=== PATIENT | male | born 1960 | race Caucasian/White ===

== ENCOUNTER 2016-12-16 20:43 | Observation (INO) | payer BC ==
[~2016-12-16] VITALS: Ht 182.9 cm; Wt 99.9 kg
[2016-12-16] MEDS ORDERED: MORPHINE SULFATE 2 MG/ML DISP.SYRIN. IV PRN ×2 (21:00→22:00)
[2016-12-16] MEDS ORDERED: NITROGLYCERIN SUBLINGUAL 0.4 MG BOTTLE OF 25. SL PRN (21:00)
[2016-12-16] MEDS ORDERED: ASPIRIN 81 MG TAB.CHEW PO ONE (21:30)
[2016-12-16 21:35] LABS: BASO # 0.1 x10^3/uL (0.0-0.2); BASO % 2 % (0-3); EOS % 2 % (0-3); HEMATOCRIT 39.2 % (39.0-53.0); HEMOGLOBIN 13.6 g/dL (13.0-17.5); LYMPH # 2.4 x10^3/uL (1.0-4.8); LYMPH % 39 % (24-48); MEAN CORPUSCULAR HEMOGLOBIN 31 pg (25-35); MEAN CORPUSCULAR HGB CONC 35 g/dL (31-37); MEAN CORPUSCULAR VOLUME 89 fL (79-100); MONO % 8 % (0-9); NEUT % 50 % (31-73); PLATELET COUNT 217 x10^3/uL (140-400); RED BLOOD COUNT 4.41 x10^6/uL (4.30-5.70); WHITE BLOOD COUNT 6.1 x10^3/uL (4.0-11.0)
[2016-12-16 21:50] LABS: CALCIUM 9.5 mg/dL (8.5-10.1); CREATININE 1.1 mg/dL (0.7-1.3); GFR 69.8; POTASSIUM 4.1 mmol/L (3.5-5.1)
[2016-12-16 21:55] LABS: ALBUMIN 3.9 g/dL (3.4-5.0); DIRECT BILIRUBIN 0.1 mg/dL (0.0-0.2); TOTAL BILIRUBIN 0.4 mg/dL (0.2-1.0); TOTAL PROTEIN 6.8 g/dL (6.4-8.2)
[2016-12-16] MEDS ORDERED: ONDANSETRON PF 4 MG/2 ML VIAL. IV PRN (22:00)
--- NOTE | 2016-12-16 23:37 | PHYS DOC ---
Past Medical History Past Medical History: No Pertinent History Past Surgical History: Other Additional Past Surgical Histo: BILATERAL KNEE Alcohol Use: Rarely Drug Use: None Adult General Chief Complaint Chief Complaint: CHEST PAIN-CARDIAC NATURE HPI HPI 56-year-old gentleman presenting to the emergency department today with right- sided chest pressure that radiates to his right neck and jaw and his right scapula. Currently he says that the pain is resolved. He describes it as moderate in intensity and is not associated with nausea vomiting or diaphoresis. He took 2 attempts prior to arrival without relief. He denies personal history of blood clotting disorders hemoptysis unilateral leg swelling or family history of blood clotting disorders. He denies recent orthopedic injury or immobilization or plane ride. He has a strong family history of heart disease and has a history of smoking. Review of systems is negative for abdominal pain nausea vomiting diaphoresis. He denies shortness of breath. All other review of systems is negative unless otherwise noted in history of present illness. Review of Systems Review of Systems SEE ABOVE. Current Medications Current Medications Current Medications Medications (Trade) Dose Ordered Sig/Steve Start Time Stop Time Status Last Admin Dose Admin Aspirin (Children'S Aspirin) 324 mg 1X ONCE 12/16/16 21:30 12/16/16 21:31 DC 12/16/16 21:32 324 MG Morphine Sulfate 2 mg PRN Q2HR PRN 12/16/16 22:00 12/17/16 21:59 Nitroglycerin (Nitrostat) 0.4 mg PRN Q5MIN PRN 12/16/16 21:00 12/16/16 21:35 0.4 MG Ondansetron HCl (Zofran) 4 mg PRN Q8HRS PRN 12/16/16 22:00 12/17/16 21:59 Allergies Allergies Allergies Coded Allergies Type Severity Reaction Last Updated Verified No Known Drug Allergies 12/16/16 No Physical Exam Physical Exam Constitutional: Well developed, well nourished, no acute distress, non-toxic appearance. HENT: Normocephalic, atraumatic, bilateral external ears normal, oropharynx moist, no oral exudates, nose normal. [] Eyes: PERRLA, EOMI, conjunctiva normal, no discharge. [] Neck: Normal range of motion, no tenderness, supple, no stridor. Cardiovascular:Heart rate regular rhythm, no murmur Lungs & Thorax: Bilateral breath sounds clear to auscultation Abdomen: Bowel sounds normal, soft, no tenderness, no masses, no pulsatile masses. [] Skin: Warm, dry, no erythema, no rash. [] Back: No tenderness, no CVA tenderness. Extremities: No tenderness, no cyanosis, no clubbing, ROM intact, no edema. [] Neurologic: Alert and oriented X 3, normal motor function, normal sensory function, no focal deficits noted. [] Psychologic: Affect normal, judgement normal, mood normal. [] Current Patient Data Vital Signs Vital Signs Date Time Temp Pulse Resp B/P Pulse Ox O2 Delivery O2 Flow Rate FiO2 12/16/16 21:57 56 17 96/63 95 Room Air 12/16/16 21:09 98.1 98.1 Lab Values Laboratory Tests Test 12/16/16 21:28 White Blood Count 6.1x10^3/uL (4.0-11.0) Red Blood Count 4.41x10^6/uL (4.30-5.70) Hemoglobin 13.6g/dL (13.0-17.5) Hematocrit 39.2% (39.0-53.0) Mean Corpuscular Volume 89fL (79-100) Mean Corpuscular Hemoglobin 31pg (25-35) Mean Corpuscular Hemoglobin Concent 35g/dL (31-37) Red Cell Distribution Width 13.0% (11.5-14.5) Platelet Count 217x10^3/uL (140-400) Neutrophils (%) (Auto) 50% (31-73) Lymphocytes (%) (Auto) 39% (24-48) Monocytes (%) (Auto) 8% (0-9) Eosinophils (%) (Auto) 2% (0-3) Basophils (%) (Auto) 2% (0-3) Neutrophils # (Auto) 3.0x10^3uL (1.8-7.7) Lymphocytes # (Auto) 2.4x10^3/uL (1.0-4.8) Monocytes # (Auto) 0.5x10^3/uL (0.0-1.1) Eosinophils # (Auto) 0.1x10^3/uL (0.0-0.7) Basophils # (Auto) 0.1x10^3/uL (0.0-0.2) Sodium Level 142mmol/L (136-145) Potassium Level 4.1mmol/L (3.5-5.1) Chloride Level 105mmol/L (98-107) Carbon Dioxide Level 28mmol/L (21-32) Anion Gap 9 (6-14) Blood Urea Nitrogen 30mg/dL (8-26) H Creatinine 1.1mg/dL (0.7-1.3) Estimated GFR (Cockcroft-Gault) 69.8 Glucose Level 93mg/dL (70-99) Calcium Level 9.5mg/dL (8.5-10.1) Total Bilirubin 0.4mg/dL (0.2-1.0) Direct Bilirubin 0.1mg/dL (0.0-0.2) Aspartate Amino Transferase (AST) 18U/L (15-37) Alanine Aminotransferase (ALT) 29U/L (16-63) Alkaline Phosphatase 60U/L (46-116) Troponin I Quantitative < 0.017ng/mL (0.000-0.055) RW-Trr-I-Type Natriuretic Peptide 22pg/mL (0-124) Total Protein 6.8g/dL (6.4-8.2) Albumin 3.9g/dL (3.4-5.0) Lipase 128U/L (73-393) Laboratory Tests 12/16/16 21:28 Laboratory Tests 12/16/16 21:28 EKG EKG [] Sinus rhythm with a regular rate. ST segments congruent. Intervals and axis are within normal limits. Radiology/Procedures Radiology/Procedures Chest x-ray reviewed by myself shows no obvious infiltrate or pneumothorax present. No obvious acute cardiopulmonary process present. Course & Med Decision Making Course & Med Decision Making Pertinent Labs and Imaging studies reviewed. (See chart for details) [] 56-year-old male presenting the emergency department with chest pain. On examination the patient's vital signs afebrile with a normal heart rate. Mild hypertension. Physical exam unremarkable. Aspirin ordered along with nitroglycerin as needed for pain. EKG unremarkable. Chest x-ray unremarkable. Blood work obtained showed a negative troponin. CBC and chemistry panel unremarkable. Given the patient's age strong family history and present illness the patient was admitted for serial blood testing further evaluation workup and care including cardiology consultation. Dragon Disclaimer Dragon Disclaimer This electronic medical record was generated, in whole or in part, using a voice recognition dictation system. Departure Departure Impression: Primary Impression: Chest pain Disposition: ADMITTED INPATIENT Admitting Physician: Babs Estrada Condition: STABLE Referrals: MARTY MURRELL DDS (PCP) JESUS HOFFMAN MD Dec 16, 2016 23:37
[2016-12-17 00:44] VITALS: BP 115/68
--- NOTE | 2016-12-17 02:20 | ACF ---
Admission Forms Criteria CARDIOLOGY GRG Clinical Indications for Admission to Inpatient Care ( Place 'X' for any and all applicable criteria): Hospital admission is needed for appropriate care of the patient because of ANY ONE of the following (1): [ ] I. Hemodynamic instability as indicated by ALL of the following (1)(2)(3) (4)(5) [ ]a) Vital signs or other findings not as expected for chronic patient condition or baseline [ ]b) Instability indicated by ANY ONE of the following: [ ]i) Hypotension [ ]ii) Symptomatic Tachycardia unresponsive to treatment ( e.g., analgesia, fluids, sedation as indicated) [ ]iii) Inadequate perfusion indicated by ANY ONE of the following: [ ] 1) Lactic acidosis (> 2 mmol/L) [ ] 2) New abnormal capillary refill (> 3 seconds) [ ] 3) Reduced urine output [ ] 4) New altered mental status [ ]iv) Orthostatic vital sign changes unresponsive to treatment (e.g., fluids) [ ]v) IV inotropic or vasopressor medication required to maintain adequate blood pressure or perfusion [ ] II. Severe heart failure as indicated by ANY ONE of the following(17)(18) [ ]a) Respiratory distress [ ]b) Hypotension [ ]c) Anasarca (refractory to outpatient therapy) [ ]d) Cardiac arrhythmias of immediate concern [ ]e) Myocardial ischemia [ ] III. Cardiac arrhythmias or findings of immediate concern indicated by ANY ONE of the following (19)(20): [ ] a) Heart rhythms that are inherently dangerous or unstable indicated by ANY ONE of the following (21)(22)(23): [ ] i) Resuscitated ventricular fibrillation or cardiac arrest [ ] ii) Ventricular escape rhythm [ ] iii) Sustained ventricular tachycardia (30 seconds or more of ventricular rhythm at greater than 100 beats per minute) [ ] iv) Nonsustained ventricular tachycardia and ANY ONE of the following: [ ] 1) Suspected cardiac ischemia as cause or consequence of ventricular tachycardia [ ] 2) In setting of acute myocarditis [ ] b) Unstable cardiac conduction defects indicated by ANY ONE of the following(23)(24)(25) [ ] i) Type II second-degree atrioventricular block [ ]ii) Third-degree atrioventricular block [ ]iii) New-onset left bundle branch block with suspected myocardial ischemia [ ]c) Any heart rhythm and ANY ONE of the following (21)(22)(26)(27) (28) [ ] i) Continuous long-term ECG monitoring needed (e.g., initiation of drug requiring monitoring for more than 24 hours) [ ] ii) Patient has automatic implanted cardioverter defibrillator that is repeatedly firing, malfunctioning, or in need of immediate adjustment of settings beyond the scope of ambulatory or observation care [ ]d) Heart rhythms of concern due to ANY ONE of the following: [ ] i) Hypotension [ ] ii) Respiratory distress [ ] iii) Association with other significant symptoms (e.g., bradycardia with syncope or ongoing dizziness, supraventricular tachycardia with chest pain (14)(15)(17) [ ] IV. Monitoring for cardiac contusion beyond the scope of observation care needed [A](30)(31)(32) [ ] V. Surgical or device complication (e.g., valve replacement complication , pacemaker dysfunction) (35)(41)(44)(45)(46) [ ] . Inpatient palliative care needed. [B](49) Also use Inpatient Palliative Care Criteria [ ] VII. Nonbacterial thrombotic (marantic) endocarditis (36)(43)(47)(48) [X] VIII. Cardiology condition, symptom, or finding for which emergency and observation care has failed or are not considered appropriate. [ ] IX. Acute valvular disease requiring inpatient as indicated by ANY ONE of the following (41) [ ]a) Acute valvular regurgitation (42) [ ]b) Noninfectious valvulitis (43) [ ]c) Obstructive valve thrombosis [ ]d) Paravalvular leak [ ]e) Other significant valvular disorder remaining after emergency or observation level of care (as appropriate) [ ]X. Pericardial disease requiring inpatient treatment as indicated by ANY ONE of the following (33)(34)(35)(36)(37) [ ]a) Suspected tamponade (38)(39)(40) [ ]b) Hemopericardium [ ]c) Other significant pericardial disorder remaining after emergency or observation level of care (as appropriate) [ ] XI. Cardiac ischemia beyond scope of emergency and observation care. [ ] XII. Hypertension requiring inpatient treatment as indicated by ANY ONE of the following (6)(7)(8) [ ]a) SBP greater than 220 mm Hg or DBP greater than 120 mmHg despite treatment [ ]b) SBP greater than 140 mm Hg or DBP greater than 100 mm Hg with evidence of acute end organ damage as indicated by ANY ONE of the following [ ] i) Encephalopathy [ ] ii) Acute renal failure as indicated by new onset of ANY ONE of the following (9)(10)(11)(12)(13) [ ]1) 3-fold rise in serum creatinine from baseline [ ]2) Serum creatinine greater than 4 mg/dL ( 354 micromoles/L) with acute rise greater than 0.5 mg/dL (44.2 micromoles/L) [ ]3) Reduction of more than 75% in estimated glomerular filtration rate from baseline [ ]4) Estimated glomerular filtration rate less than 35 mL/min/1.73m2 (0.59 mL/sec/1.73m2) in child up to 18 years of age [ ]5) Cessation of urine output indicated by ALL of the following [ ]A. Adequate volume status [ ]B. Inadequate urine output as indicated by ANY ONE of the following [ ]a. Urine output less than 0.3 mL/kg/hr for 24 hours [ ]b. Anuria (urine output less than 0.1 mL/kg/hr) for 12 hours [ ] iii) Aortic dissection [ ] iv) Myocardial Ischemia [ ] v) Left ventricular heart failure [ ]vi) Retinal Hemorrhage [ ]vii) Other significant finding [ ]c) Hypertension in child requiring inpatient treatment as indicated by ALL of the following(14)(15)(16) [ ] i) Outpatient treatment not effective, not available, or not appropriate [ ]ii) SBP or DBP greater than 95th percentile for age [ ]iii) Evidence of acute end organ damage as indicated by ANY ONE of the following [ ]1) Altered mental status [ ]2) Acute renal failure as indicated by new onset of ANY ONE of the following(9)(10)(11)(12)(13) [ ]A. 3-fold rise in serum creatinine from baseline [ ]B. Serum creatinine greater than 4 mg/dL (354 micromoles/L) with acute rise greater than 0.5 mg/dL (44.2 micromoles/L) [ ]C. Reduction of more than 75% in estimated glomerular filtration rate from baseline [ ]D. Estimated glomerular filtration rate less than 35 mL/min/1.73m2 (0.59 mL/sec/1.73m2) in child up to 18 years of age [ ]E. Cessation of urine output indicated by ALL of the following [ ]a. Adequate volume status [ ]b. Inadequate urine output as indicated by ANY ONE of the following [ ]i) Urine output less than 0.3 mL/kg/hr for 24 hours [ ]ii) Anuria ( urine output less than 0.1 mL/kg/hr) for 12 hours [ ]3) Severe headache [ ]4) Visual disturbance [ ]5) Retinal hemorrhage [ ]6) Other significant finding [ ]XIII. Complications of transplanted heart indicated by ANY ONE of the following(61): [ ]a) Acute graft rejection requiring inpatient management (eg, intravenous immunosuppression)(62)(63) [ ]b) Acute graft heart failure indicated by ANY ONE of the following(64): [ ]i) Hemodynamic instability [ ]ii) Cardiac arrhythmias of immediate concern [ ]iii) Pulmonary edema that is very severe (eg, mechanical ventilation needed, imminent or likely, need for 100% oxygen to keep oxygen saturation above 90%) [ ]iv) Pulmonary edema that is persistent as indicated by ALL of the following: [ ]1) New need for oxygen therapy to keep oxygen saturation above 90% (or increased FiO2 need from baseline) [ ]2) Has not improved sufficiently with emergency department or observation care IV diuretics or other heart failure treatments[E] [ ]v) Altered mental status that is severe or persistent [ ]vi) Increased creatinine (new on laboratory test) with reduction of more than 50% in estimated glomerular filtration rate from baseline [ ]vii) Progressively (ongoing) rising creatinine (known from past laboratory test) with reduction of more than 25% in estimated glomerular filtration rate from baseline [ ]viii) Acute renal failure [ ]ix) Acute peripheral ischemia (eg, examination shows pulseless, cool, mottled, or cyanotic extremity) [ ]x) Pulmonary artery catheter monitoring needed [ ]xi) Other sign or symptom of heart failure requiring inpatient treatment (ie, too severe or not responsive to outpatient and observation care treatment) [ ]c) Infection requiring inpatient management (eg, Hemodynamic instability, need for intravenous antimicrobial treatment)(66)(67)(68)(69)(70) [ ]d) Cardiac allograft vasculopathy requiring inpatient management ( eg evidence of cardiac ischemia)(71) [ ]e) Other complication of transplanted heart (eg, stroke, severe pulmonary hypertension, severe valvular dysfunction) requiring inpatient management(72) The original [facility] content created by [facility] has been revised. The portions of the content which have been revised are identified through the use of italic text or in bold, and [facility] has neither reviewed nor approved the modified material. All other unmodified content is copyright [facility]. Please see references footnoted in the original [facility] edition 2016 Admission Criteria Met?: Yes POOJA PARIS Dec 17, 2016 02:20
[2016-12-17 03:00] VITALS: BP 95/55
[2016-12-17 04:59] LABS: BASO % 1 % (0-3); EOS % 2 % (0-3); HEMATOCRIT 39.3 % (39.0-53.0); HEMOGLOBIN 13.3 g/dL (13.0-17.5); LYMPH # 2.1 x10^3/uL (1.0-4.8); LYMPH % 42 % (24-48); MEAN CORPUSCULAR HEMOGLOBIN 31 pg (25-35); MEAN CORPUSCULAR HGB CONC 34 g/dL (31-37); MEAN CORPUSCULAR VOLUME 90 fL (79-100); MONO % 10 % (0-9); NEUT % 45 % (31-73); PLATELET COUNT 207 x10^3/uL (140-400); RED BLOOD COUNT 4.37 x10^6/uL (4.30-5.70); RED CELL DISTRIBUTION WIDTH 13.1 % (11.5-14.5); WHITE BLOOD COUNT 4.9 x10^3/uL (4.0-11.0)
[2016-12-17 05:27] LABS: CALCIUM 9.2 mg/dL (8.5-10.1); CREATININE 1.1 mg/dL (0.7-1.3); GFR 69.8; POTASSIUM 4.1 mmol/L (3.5-5.1)
[2016-12-17 07:00] VITALS: BP 121/57
--- NOTE | 2016-12-17 07:42 | RAD ---
Portable chest, 12/16/2016: History: Chest pain The heart size and pulmonary vascularity are normal. No pulmonary infiltrates are seen. There is no evidence of pleural fluid. IMPRESSION: No acute cardiopulmonary abnormality is detected.
[2016-12-17] MEDS ORDERED: FAMOTIDINE 20 MG TABLET. PO ONE (08:30)
[2016-12-17] MEDS ORDERED: DEXTROSE 50% 25 GM / 50ML DISP.SYRIN. IV PRN (08:30)
[2016-12-17] MEDS ORDERED: BISMUTH SUBSALICYLATE 262 MG/15 ML ORAL.SUSP 236ML BOTTLE. PO PRN (08:30)
--- NOTE | 2016-12-17 08:31 | PDOC1 ---
History and Physical Date of Admission Date of Admission DATE: 12/17/16 TIME: 08:22 Source Source: Chart review, Patient History of Present Illness History of Present Illness chest pain last night, when standing, he felt "shaky" which happens to him once every few months, and gets better when he eats something. THis time, it did not impvoed, then he had chest pain, right side of chest, and then pain up neck to right side of head. He felt his arm was tingling at the time as well, He described that his rigth neck and head and arm and torso all had mild pain 4/ 10. Not described as headache. and now better, he is unsure if he was improving before interventions in ER. His PCP is Dr. Malin [facility], he has prior treatmill MPI years ago that was negative, his cholesterol was checked over a year ago, and he takes no meds Past Medical History Cardiovascular: No pertinent hx Pulmonary: No pertinent hx GI: No pertinent hx Rheumatologic: No pertinent hx Infectious disease: No pertinent hx ENT: No pertinent hx Renal/: No pertinent hx Endocrine: No pertinent hx Family History Family History: Coronary Artery Disease (father in his 30's), Heart Disease Family History: Parent Social History Smoke: No ALCOHOL: rare Drugs: None Current Problem List Problem List Problems Medical Problems: (1) Chest pain Status: Acute Problems: Current Medications Current Medications Current Medications Aspirin (Children'S Aspirin) 324 mg 1X ONCE PO Last administered on 12/16/16 21:32; Start 12/16/16 at 21:30; Stop 12/16/16 at 21:31; Status DC Nitroglycerin (Nitrostat) 0.4 mg PRN Q5MIN PRN SL CHEST PAIN Last administered on 12/16/16 21:35; Start 12/16/16 at 21:00 Morphine Sulfate 2 mg PRN Q1HR PRN IV SEVERE PAIN; Start 12/16/16 at 21:00; Stop 12/17/16 at 20:59 Ondansetron HCl (Zofran) 4 mg PRN Q8HRS PRN IV NAUSEA/VOMITING; Start 12/16/16 at 22:00; Stop 12/17/16 at 21:59 Morphine Sulfate 2 mg PRN Q2HR PRN IV SEVERE PAIN; Start 12/16/16 at 22:00; Stop 12/17/16 at 21:59 Allergies Allergies: Coded Allergies: Penicillins (Verified Allergy, Severe, Itching, 12/17/16) ROS General: No: Appetite, Chills, Fatigue, Malaise, Night Sweats, Other PSYCHOLOGICAL ROS: No: Anxiety, Behavioral Disorder, Concentration difficultie , Decreased libido, Depression, Disorientation, Hallucinations, Hostility, Irritablity, Memory difficulties, Mood Swings, Obsessive thoughts, Other, Physical abuse, Sexual abuse, Sleep disturbances, Suicidal ideation Eyes: No Blurry vision, No Decreased vision, No Double vision, No Dry eyes, No Excessive tearing, No Eye Pain, No Itchy Eyes, No Loss of vision, No Other, No Photophobia, No Scotomata, No Uses contacts, No Uses glasses HEENT: No: Epistaxis, Heacaches, Hearing change, Nasal congestion, Nasal discharge, Oral lesions, Other, Sinus pain, Sneezing, Snoring, Sore Throat, Tinnitus, Vertigo, Visual Changes, Vocal changes Respiratory: No: Cough, Hemoptysis, Orthopnea, Other, Pleuritic Pain, SOB with excertion, Shortness of breath, Sputum Changes, Stridor, Tachypnea, Wheezing Cardiovascular: yes Chest Pain, No Edema, No Lt Headedness, No Orthopnea, No Other, No Palpitations, No Paroxysmal Noc. Dyspnea Gastrointestinal: No Abdominal Pain, No Constipation, No Diarrhea, No Hematochezia, No Melena, No Nausea, No Other, No Vomiting Genitourinary: No , No , No , No , No , No , No , No Discharge, No Dysuria, No Flank Pain, No Frequency, No Hematuria, No Incontinence, No Other, No Pain, No Retention, No Urgency Musculoskeletal: No Gait Disturbance, No Joint Pain, No Joint Stiffness, No Joint Swelling, No Muscle Pain, No Muscular Weakness, No Other, No Pain In:, No Swelling In: Neurological: Yes Dizziness, No Behavorial Changes, No Bowel/Bladder ControlChng, No Confusion, No Gait Disturbance, No Headaches, No Impaired Coord/balance, No Memory Loss, No Numbness/Tingling, No Other, No Seizures, No Speech Problems, No Tremors, No Visual Changes, No Weakness Skin: No Acne, No Dry Skin, No Eczema, No Hair Changes, No Lumps, No Mole Changes, No Mottling, No Nail Changes, No Other, No Pruritus, No Rash, No Skin Lesion Changes Physical Exam General: Alert, Oriented X3, Cooperative, No acute distress HEENT: Atraumatic, PERRLA, EOMI, Mucous membr. moist/pink, Other (excellent dentition) Lungs: Clear to auscultation, Normal air movement Heart: S1S2, RRR, no gallops, no murmurs Cardiovascular: S1, S2 Abdomen: Normal bowel sounds, Soft Extremities: No clubbing, No edema, Normal pulses Skin: No rashes, No breakdown, No significant lesion Neuro: Normal tone, Sensation intact Psych/Mental Status: Mental status NL, Mood NL Vitals Vitals Vital Signs Date Time Temp Pulse Resp B/P Pulse Ox O2 Delivery O2 Flow Rate FiO2 12/17/16 03:00 97.9 64 20 95/55 96 Room Air 97.9 Labs Labs Laboratory Tests Test 12/16/16 21:28 12/17/16 04:00 White Blood Count 6.1x10^3/uL (4.0-11.0) 4.9x10^3/uL (4.0-11.0) Red Blood Count 4.41x10^6/uL (4.30-5.70) 4.37x10^6/uL (4.30-5.70) Hemoglobin 13.6g/dL (13.0-17.5) 13.3g/dL (13.0-17.5) Hematocrit 39.2% (39.0-53.0) 39.3% (39.0-53.0) Mean Corpuscular Volume 89fL (79-100) 90fL (79-100) Mean Corpuscular Hemoglobin 31pg (25-35) 31pg (25-35) Mean Corpuscular Hemoglobin Concent 35g/dL (31-37) 34g/dL (31-37) Red Cell Distribution Width 13.0% (11.5-14.5) 13.1% (11.5-14.5) Platelet Count 217x10^3/uL (140-400) 207x10^3/uL (140-400) Neutrophils (%) (Auto) 50% (31-73) 45% (31-73) Lymphocytes (%) (Auto) 39% (24-48) 42% (24-48) Monocytes (%) (Auto) 8% (0-9) 10% (0-9) Eosinophils (%) (Auto) 2% (0-3) 2% (0-3) Basophils (%) (Auto) 2% (0-3) 1% (0-3) Neutrophils # (Auto) 3.0x10^3uL (1.8-7.7) 2.2x10^3uL (1.8-7.7) Lymphocytes # (Auto) 2.4x10^3/uL (1.0-4.8) 2.1x10^3/uL (1.0-4.8) Monocytes # (Auto) 0.5x10^3/uL (0.0-1.1) 0.5x10^3/uL (0.0-1.1) Eosinophils # (Auto) 0.1x10^3/uL (0.0-0.7) 0.1x10^3/uL (0.0-0.7) Basophils # (Auto) 0.1x10^3/uL (0.0-0.2) 0.0x10^3/uL (0.0-0.2) Sodium Level 142mmol/L (136-145) 144mmol/L (136-145) Potassium Level 4.1mmol/L (3.5-5.1) 4.1mmol/L (3.5-5.1) Chloride Level 105mmol/L (98-107) 107mmol/L (98-107) Carbon Dioxide Level 28mmol/L (21-32) 27mmol/L (21-32) Anion Gap 9 (6-14) 10 (6-14) Blood Urea Nitrogen 30mg/dL (8-26) 25mg/dL (8-26) Creatinine 1.1mg/dL (0.7-1.3) 1.1mg/dL (0.7-1.3) Estimated GFR (Cockcroft-Gault) 69.8 69.8 Glucose Level 93mg/dL (70-99) 95mg/dL (70-99) Calcium Level 9.5mg/dL (8.5-10.1) 9.2mg/dL (8.5-10.1) Total Bilirubin 0.4mg/dL (0.2-1.0) Direct Bilirubin 0.1mg/dL (0.0-0.2) Aspartate Amino Transf (AST/SGOT) 18U/L (15-37) Alanine Aminotransferase (ALT/SGPT) 29U/L (16-63) Alkaline Phosphatase 60U/L (46-116) Troponin I Quantitative < 0.017ng/mL (0.000-0.055) < 0.017ng/mL (0.000-0.055) QK-Oga-D-Type Natriuretic Peptide 22pg/mL (0-124) Total Protein 6.8g/dL (6.4-8.2) Albumin 3.9g/dL (3.4-5.0) Lipase 128U/L (73-393) Laboratory Tests Test 12/16/16 21:28 12/17/16 04:00 White Blood Count 6.1x10^3/uL (4.0-11.0) 4.9x10^3/uL (4.0-11.0) Red Blood Count 4.41x10^6/uL (4.30-5.70) 4.37x10^6/uL (4.30-5.70) Hemoglobin 13.6g/dL (13.0-17.5) 13.3g/dL (13.0-17.5) Hematocrit 39.2% (39.0-53.0) 39.3% (39.0-53.0) Mean Corpuscular Volume 89fL (79-100) 90fL (79-100) Mean Corpuscular Hemoglobin 31pg (25-35) 31pg (25-35) Mean Corpuscular Hemoglobin Concent 35g/dL (31-37) 34g/dL (31-37) Red Cell Distribution Width 13.0% (11.5-14.5) 13.1% (11.5-14.5) Platelet Count 217x10^3/uL (140-400) 207x10^3/uL (140-400) Neutrophils (%) (Auto) 50% (31-73) 45% (31-73) Lymphocytes (%) (Auto) 39% (24-48) 42% (24-48) Monocytes (%) (Auto) 8% (0-9) 10% (0-9) Eosinophils (%) (Auto) 2% (0-3) 2% (0-3) Basophils (%) (Auto) 2% (0-3) 1% (0-3) Neutrophils # (Auto) 3.0x10^3uL (1.8-7.7) 2.2x10^3uL (1.8-7.7) Lymphocytes # (Auto) 2.4x10^3/uL (1.0-4.8) 2.1x10^3/uL (1.0-4.8) Monocytes # (Auto) 0.5x10^3/uL (0.0-1.1) 0.5x10^3/uL (0.0-1.1) Eosinophils # (Auto) 0.1x10^3/uL (0.0-0.7) 0.1x10^3/uL (0.0-0.7) Basophils # (Auto) 0.1x10^3/uL (0.0-0.2) 0.0x10^3/uL (0.0-0.2) Sodium Level 142mmol/L (136-145) 144mmol/L (136-145) Potassium Level 4.1mmol/L (3.5-5.1) 4.1mmol/L (3.5-5.1) Chloride Level 105mmol/L (98-107) 107mmol/L (98-107) Carbon Dioxide Level 28mmol/L (21-32) 27mmol/L (21-32) Anion Gap 9 (6-14) 10 (6-14) Blood Urea Nitrogen 30mg/dL (8-26) 25mg/dL (8-26) Creatinine 1.1mg/dL (0.7-1.3) 1.1mg/dL (0.7-1.3) Estimated GFR (Cockcroft-Gault) 69.8 69.8 Glucose Level 93mg/dL (70-99) 95mg/dL (70-99) Calcium Level 9.5mg/dL (8.5-10.1) 9.2mg/dL (8.5-10.1) Total Bilirubin 0.4mg/dL (0.2-1.0) Direct Bilirubin 0.1mg/dL (0.0-0.2) Aspartate Amino Transf (AST/SGOT) 18U/L (15-37) Alanine Aminotransferase (ALT/SGPT) 29U/L (16-63) Alkaline Phosphatase 60U/L (46-116) Troponin I Quantitative < 0.017ng/mL (0.000-0.055) < 0.017ng/mL (0.000-0.055) JS-Ubn-F-Type Natriuretic Peptide 22pg/mL (0-124) Total Protein 6.8g/dL (6.4-8.2) Albumin 3.9g/dL (3.4-5.0) Lipase 128U/L (73-393) VTE Prophylaxis Ordered VTE Prophylaxis Devices: No VTE Pharmacological Prophylaxi: Yes Assessment/Plan Assessment/Plan chest pain, anginal equivalent at rest, while standing, right side w/ pressure now improved r/o ACS, one trop reamaining CV consult pending check TSH, FSBS for hypoglycemic possible sx check carotid for right neck pain with chest pain, and assoc. otherwise healthy male, min dehydration or CKD 2 obs ANNA VARGAS MD Dec 17, 2016 08:31
[2016-12-17 09:04] LABS: CHOLESTEROL/HDL RATIO 3.5
--- NOTE | 2016-12-17 09:11 | EKG ---
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
--- NOTE | 2016-12-17 09:22 | PDOC2 ---
LIZETHMALINDA Garrett STOPPER GRINDER 12/17/16 0922: CARDIAC CONSULT DATE OF CONSULT Date of Consult DATE: 12/17/16 TIME: 09:19 REASON FOR CONSULT Reason for Consult: chest pain REFERRING PHYSICIAN Referring Physician: Dr. José Coleman SOURCE Source: Chart review HISTORY OF PRESENT ILLNESS HISTORY OF PRESENT ILLNESS 56 year old male who developed dizziness about 1730 yesterday. Eating has resolved previous episodes, however, this time he reports he still " did not feel right." About 1800 he was walking back to the house after putting out trashcans when he developed right mammary and upper chest pain with radiation into the right neck and right scapular region. Pain described as dull and lasting about an hour before becoming intermittent. No associated symptoms. Presented to ER about 2230 yesterday. EKG without acute changes and two troponin levels not consistent wtih ACS. Previous episode of CP about 10 years ago and underwent thallium treadmill, presumed non-ischemic as patient was discharged from hospital. No follow up care with cardiology in the intervening years. PAST MEDICAL HISTORY Cardiovascular: No pertinent hx Pulmonary: No pertinent hx CENTRAL NERVOUS SYSTEM: Other (denies) GI: GERD Heme/Onc: No pertinent hx Hepatobiliary: No pertinent hx Psych: Anxiety, Depression Musculoskeletal: Osteoarthritis (knees) Rheumatologic: No pertinent hx Infectious disease: No pertinent hx ENT: No pertinent hx Renal/: No pertinent hx Endocrine: No pertinent hx Dermatology: No pertinent hx PAST SURGICAL HISTORY Past Surgical History: Other (arthroscopy knee) FAMILY HISTORY Family History: Coronary Artery Disease (father wth [facility] at age 36), Stroke ( paternal uncle), Other (PPM - father) SOCIAL HISTORY 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: No ALCOHOL: occassional (one beer every 2 weeks) Drugs: None CURRENT MEDICATIONS CURRENT MEDICATIONS Current Medications Medications (Trade) Dose Ordered Sig/Steve Route PRN Reason Start Time Stop Time Status Last Admin Dose Admin Aspirin (Children'S Aspirin) 324 mg 1X ONCE PO 12/16/16 21:30 12/16/16 21:31 DC 12/16/16 21:32 Nitroglycerin (Nitrostat) 0.4 mg PRN Q5MIN PRN SL CHEST PAIN 12/16/16 21:00 12/16/16 21:35 ALLERGIES ALLERGIES: Coded Allergies: Penicillins (Verified Allergy, Severe, Itching, 12/17/16) ROS Review of System 14 point review completed with pertinent positives in HPI VITALS VITALS Vital Signs Date Time Temp Pulse Resp B/P Pulse Ox O2 Delivery O2 Flow Rate FiO2 12/17/16 03:00 97.9 64 20 95/55 96 Room Air 97.9 LABS Lab: Laboratory Tests Test 12/16/16 21:28 12/17/16 04:00 12/17/16 08:39 White Blood Count 6.1x10^3/uL (4.0-11.0) 4.9x10^3/uL (4.0-11.0) Red Blood Count 4.41x10^6/uL (4.30-5.70) 4.37x10^6/uL (4.30-5.70) Hemoglobin 13.6g/dL (13.0-17.5) 13.3g/dL (13.0-17.5) Hematocrit 39.2% (39.0-53.0) 39.3% (39.0-53.0) Mean Corpuscular Volume 89fL (79-100) 90fL (79-100) Mean Corpuscular Hemoglobin 31pg (25-35) 31pg (25-35) Mean Corpuscular Hemoglobin Concent 35g/dL (31-37) 34g/dL (31-37) Red Cell Distribution Width 13.0% (11.5-14.5) 13.1% (11.5-14.5) Platelet Count 217x10^3/uL (140-400) 207x10^3/uL (140-400) Neutrophils (%) (Auto) 50% (31-73) 45% (31-73) Lymphocytes (%) (Auto) 39% (24-48) 42% (24-48) Monocytes (%) (Auto) 8% (0-9) 10% (0-9) Eosinophils (%) (Auto) 2% (0-3) 2% (0-3) Basophils (%) (Auto) 2% (0-3) 1% (0-3) Neutrophils # (Auto) 3.0x10^3uL (1.8-7.7) 2.2x10^3uL (1.8-7.7) Lymphocytes # (Auto) 2.4x10^3/uL (1.0-4.8) 2.1x10^3/uL (1.0-4.8) Monocytes # (Auto) 0.5x10^3/uL (0.0-1.1) 0.5x10^3/uL (0.0-1.1) Eosinophils # (Auto) 0.1x10^3/uL (0.0-0.7) 0.1x10^3/uL (0.0-0.7) Basophils # (Auto) 0.1x10^3/uL (0.0-0.2) 0.0x10^3/uL (0.0-0.2) Sodium Level 142mmol/L (136-145) 144mmol/L (136-145) Potassium Level 4.1mmol/L (3.5-5.1) 4.1mmol/L (3.5-5.1) Chloride Level 105mmol/L (98-107) 107mmol/L (98-107) Carbon Dioxide Level 28mmol/L (21-32) 27mmol/L (21-32) Anion Gap 9 (6-14) 10 (6-14) Blood Urea Nitrogen 30mg/dL (8-26) 25mg/dL (8-26) Creatinine 1.1mg/dL (0.7-1.3) 1.1mg/dL (0.7-1.3) Estimated GFR (Cockcroft-Gault) 69.8 69.8 Glucose Level 93mg/dL (70-99) 95mg/dL (70-99) Calcium Level 9.5mg/dL (8.5-10.1) 9.2mg/dL (8.5-10.1) Total Bilirubin 0.4mg/dL (0.2-1.0) Direct Bilirubin 0.1mg/dL (0.0-0.2) Aspartate Amino Transf (AST/SGOT) 18U/L (15-37) Alanine Aminotransferase (ALT/SGPT) 29U/L (16-63) Alkaline Phosphatase 60U/L (46-116) Troponin I Quantitative < 0.017ng/mL (0.000-0.055) < 0.017ng/mL (0.000-0.055) OD-Ckc-P-Type Natriuretic Peptide 22pg/mL (0-124) Total Protein 6.8g/dL (6.4-8.2) Albumin 3.9g/dL (3.4-5.0) Lipase 128U/L (73-393) Triglycerides Level 47mg/dL (0-150) Cholesterol Level 141mg/dL (0-200) LDL Cholesterol, Calculated 92mg/dL (0-100) VLDL Cholesterol, Calculated 9mg/dL (0-40) HDL Cholesterol 40mg/dL (40-60) Cholesterol/HDL Ratio 3.5 Glucose (Fingerstick) 136mg/dL (70-99) IMAGES IMAGES CXR - without acute process EKG EKG SR without acute changes ASSESSMENT/PLAN ASSESSMENT/PLAN 1. chest pain somewhat atypical - ? GB disease (AST and ALT WNL) no acute changes in EKG and troponin levels X 2 not consistent with ACS risk factors: age, sex, family history of premature CAD given risk factors and family history of premature CAD - will send for stress echo (has had full breakfast) if non-ischemic, expect discharge later today 2. low HDLs exercise recommended LDLs = 92; dietary changes recommended 3. DJD 4. GERD may benefit from trial of H2 aubrey if stress echo non-ischemic Problems: ADRIANNE ADAMS MD 12/18/16 0811: CARDIAC CONSULT ALLERGIES ALLERGIES: Coded Allergies: Penicillins (Verified Allergy, Severe, Itching, 12/17/16) ASSESSMENT/PLAN ASSESSMENT/PLAN Late entry for 12/17/2016Pt. seen and examined. 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 56 y.o man presenting with atypical chest pain, suspect GERD Normal cardiac exam. Normal stress echo f/u on an outpt basis prn if pain recurs. Low risk patient (no smoking, DM2) Problems: MALINDA STANLEY STOPPER GRINDER Dec 17, 2016 09:22 ADRIANNE ADAMS MD Dec 18, 2016 08:11
[2016-12-17 10:55] VITALS: BP 112/68
[2016-12-17 10:56] VITALS: BP_SYST 115; BP_SYST 119; BP_DIAS 72; BP_DIAS 75
[2016-12-17 11:25] LABS: BILIRUBIN,URINE NEGATIVE (NEG); GLUCOSE,URINE NEGATIVE (NEG); NITRITE,URINE NEGATIVE (NEG); PROTEIN,URINE NEGATIVE (NEG-TRACE); UROBILINOGEN,URINE 0.2 mg/dL (0.2 mg/dL)
[2016-12-17 11:47] LABS: BACTERIA,URINE 0 /HPF (0-FEW); RBC,URINE 0 /HPF (0-2); SQUAMOUS EPITHELIAL CELL,UR OCC /LPF; WBC,URINE 0 /HPF (0-4)
--- NOTE | 2016-12-17 12:18 | CARD ---
APPROVED REPORT Reason : Patient complained of pain PROCEDURE The patient underwent an Exercise Stress Test using the Fredi Protocol. Blood pressure, heart rate, a nd EKG were monitored. An Echocardiogram was performed by signals collection technician in four stages in quad fashion. At peak stress four se lected images were obtained and placed side by side with resting images for comparison. STRESS ECHO FINDINGS The resting Echocardiogram showed normal left ventricular contractility with an estimated Ejection Fr action of about 60 %. Normal augmentation of myocardial wall segments using a 16 segment model. Test Type: Exercise Stress Nurse/Tech: Ivonne Red R.N. Test Indications: c/p Cardiac History and Allergies: see ehr Medications: see ehr Medical History: see ehr Resting ECG: SR w/slight BBB Resting Heart Rate: 70 bpm Resting Blood Pressure: 111/67mmHg Pretest Chest Pain: No chest pain Nurse/Tech Notes S1S2, lungs CTA Stress Symptoms No chest pain or symptoms. POST EXERCISE Reason for Termination: Reached target heart rate Target HR: Yes Max HR: 163 bpm 98% of Maximum Predicted HR: 166 bpm Exercise duration: 11:15 min:sec, 4 Stage Exercise capacity: 12.8METs Max Blood Pressure: 176/80mmHg Blood Pressure response to exercise: Normal blood pressure response during stress. Heart Rate response to exercise: wnl Chest Pain: No. Arrhythmia: No. ST Change: No. BBB does become more pronounced STRESS ECG Stress EKG shows no significant changes. <Conclusion> 1. Normal exercise level with 12.8 Mets achieved. Appropriate BP response. 2. Normal wall motion and EF at stress/rest. 3. Non-specific 0.5mm inferolateral ST segment depression. 4. Low risk study.
--- NOTE | 2016-12-17 13:11 | RAD ---
EXAM: Carotid Doppler sonogram. HISTORY: Right hand paresthesia. TECHNIQUE: Owen scale and color Doppler sonographic evaluation of the neck with spectral waveform analysis was performed and static images are submitted for review. FINDINGS: RIGHT: The peak systolic velocity within the common carotid artery is 83 cm/sec. The peak systolic velocity within the internal carotid artery is 101 cm/sec and the end diastolic velocity within the internal carotid artery is 32 cm/sec. The ICA/CCA ratio is 1.21. Grayscale images demonstrate no significant plaquing. LEFT: The peak systolic velocity within the common carotid artery is 90 cm/sec. The peak systolic velocity within the internal carotid artery is 112 cm/sec and the end diastolic velocity within the internal carotid artery is 32 cm/sec. The ICA/CCA ratio is 1.25. Grayscale images demonstrate no significant plaquing. There is antegrade flow within both vertebral arteries. IMPRESSION: 1. No evidence of hemodynamically significant stenosis. PQRS Compliance Statement - Stenosis calculations for CT, MR and conventional angiography are based upon measurement of the distal ICA diameter in accordance with the NASCET methodology. Stenosis calculations for carotid ultrasound studies are derived from validated velocity criteria which are known to correlate with the NASCET methodology.
== END 2016-12-17 14:02 | disposition home or self-care (01) ==
LOC: ER 20:43 → 5 NORTH 22:01
PROVIDERS: ADMIT Internal Medicine; ATTEND Internal Medicine
DX: R07.89 Other chest pain (principal); K21.9 Gastro-esophageal reflux disease without esophagitis; F41.9 Anxiety disorder, unspecified; F32.9 Major depressive disorder, single episode, unspecified; M17.0 Bilateral primary osteoarthritis of knee; E78.6 Lipoprotein deficiency; Z87.891 Personal history of nicotine dependence; Z82.3 Family history of stroke; Z82.49 Family history of ischemic heart disease and other diseases of the circulatory system
CPT/HCPCS: 36415; 71010; 80048; 80061; 80076; 81001; 82947; 83690; 83880; 84443; 84484; 85027; 93005; 93017; 93350; 93880; 99285; G0378; G0379